=== PATIENT | female | born 1975 | race Caucasian/White ===

== ENCOUNTER 2016-02-20 12:30 | Inpatient (IN) | payer MEDICAID ==
[~2016-02-20] VITALS: Ht 165.1 cm; Wt 77.7 kg
[~2016-02-20 12:30] MED LIST: BEN25 PO; PNV1CAPS17
[2016-02-22] MEDS ORDERED: EPHEDrine SULFATE 50 MG/5 ML SYG ONE (07:00)
[2016-02-22 08:26] VITALS: BMI 62.4
[2016-02-22] MEDS ORDERED: CLINDAMYCIN 900 MG/D5W (PMX) 50 ML IV SCH (08:30)
[2016-02-22] MEDS ORDERED: OXYTOCIN 30 UNITS/LR 500 ML IV SCH (08:30)
[2016-02-22] MEDS ORDERED: MISOPROSTOL 200 MCG TAB PR PRN ×2 (08:30→14:30)
[2016-02-22] MEDS ORDERED: METHYLERGONOVINE 0.2 MG INJ IM PRN ×2 (08:30→14:30)
[2016-02-22] MEDS ORDERED: OXYTOCIN 30 UNITS/LR 500 ML IV PRN ×2 (08:30→14:30)
[2016-02-22] MEDS ORDERED: CARBOPROST 250 MCG INJ IM PRN ×2 (08:30→14:30)
[2016-02-22 08:31] VITALS: Ht 165.1 cm; Wt 77.7 kg
[2016-02-22 08:36] LABS: BASOPHILS % 0.4 % (0.0-2.0); EOSINOPHILS # 0.1 10^3/ul (0.0-0.5); EOSINOPHILS % 0.9 % (0.0-7.0); HEMATOCRIT 40.7 % (37.0-47.0); HEMOGLOBIN 13.8 g/dl (12.0-16.0); LYMPHOCYTES # 1.5 10^3/ul (0.8-2.9); LYMPHOCYTES % 15.1 % (15.0-51.0); MEAN CORPUSCULAR HEMOGLOBIN 30.6 pg (29.0-33.0); MEAN CORPUSCULAR HGB CONC 33.9 g/dl (32.0-37.0); MEAN CORPUSCULAR VOLUME 90.4 fl (82.0-101.0); MEAN PLATELET VOLUME 12.9 fl (7.4-10.4); MONOCYTE # 0.7 10^3/ul (0.3-0.9); MONOCYTES % 7.3 % (0.0-11.0); NEUTROPHIL # 7.6 10^3/ul (1.6-7.5); NEUTROPHILS % 76.3 % (39.0-77.0); PLATELET COUNT 115 10^3/UL (140-440); RED CELL DISTRIBUTION WIDTH 14.4 % (11.5-14.5)
[2016-02-22 08:40] LABS: INR 0.98; PARTIAL THROMBOPLASTIN TIME 27.6 Sec (25.0-35.0)
[2016-02-22] MEDS: LACTATED RINGER'S 1,000 ML IV SCH ×2 (08:46→09:19)
[2016-02-22 09:03] LABS: CONDITION 1; LH ANALYZER COMMENTS 1; SUSPECT 1
[2016-02-22 09:16] VITALS: BP 111/71; PULSE 81; RESP 18
[2016-02-22] MEDS ORDERED: FENTAnyl 50 MCG/ML VIAL ONE (10:01)
[2016-02-22] MEDS ORDERED: morphine SULFATE/PF (10 MG/10 ML) INJ ONE (10:01)
[2016-02-22] MEDS ORDERED: PHENYLephrine (100 MCG/ML) 5ML SYG ONE (10:01)
[2016-02-22] MEDS ORDERED: ONDANSETRON 4 MG INJ ONE (10:25)
--- NOTE | 2016-02-22 10:58 | HP ---
Date/Time of Note Date/Time of Note DATE: 02/22/16 TIME: 10:52 OB - History Hx of Present Free Text/Dictation 40 years old Thai female 3 para 2 history of 2 previous with EDC of February 27, 2016 admitted at 39 weeks 2 days for repeat and bilateral tubal ligation she has been informed regarding the tubal ligation failure rate, and risk of increased chance of ectopic and future failure to conceive and patient would like to proceed with tubal ligation at the time of section Estimated Due Date: Feb 27, 2016 : 3 Para: 2 Care: Limited Care Obstetrical Complications: Gestational Diabetes Medical Complications: None Past Family/Social History * Past Medical, Surgical, Family and Obstetric Histories reviewed from chart. Rubella: immune RPR/VDRL: Negative GBS Status: Negative HBsAG: Negative OB Admission Exam Vital Signs Vital Signs Vital Signs Date Time Temp Pulse Resp B/P Pulse Ox O2 Delivery O2 Flow Rate FiO2 02/22/16 09:16 98.0 81 18 111/71 Room Air Physical Exam HEENT: WNL Heart: Rhythm Normal Lungs: Clear, Equal Abdomen: WNL Extremities: Normal Cervical Dilatation: None Station: -2 Membranes: Intact Heart Rate: 130's Accelerations: Accelerations Present Decelerations: No Decelerations Last 72 hours Lab Results CBC & BMP 02/22/16 08:00 FAUSTINO ROSE MD Feb 22, 2016 10:58
[2016-02-22] MEDS ORDERED: KETOROLAC 30 MG INJ IV PRN (11:30)
[2016-02-22] MEDS ORDERED: DIPHENHYDRAMINE 50 MG INJ IV PRN (11:30)
[2016-02-22] MEDS ORDERED: HYDROmorphONE 1 MG/ML SYG IV PRN ×2 (11:30)
[2016-02-22] MEDS ORDERED: ONDANSETRON 4 MG INJ IV PRN (11:30)
[2016-02-22] MEDS ORDERED: ZOLPIDEM 5 MG TAB PO PRN (11:30)
[2016-02-22] MEDS ORDERED: NALOXONE (0.4 MG/ML) INJ IV PRN (11:30)
--- NOTE | 2016-02-22 13:40 | OPR ---
DATE OF OPERATION: 02/22/2016 PREOPERATIVE DIAGNOSES: 1. Intrauterine at 39 weeks 2 days' gestation. 2. History of 2 previous sections. 3. Request for voluntary sterilization, bilateral tubal ligation. POSTOPERATIVE DIAGNOSES: 1. Intrauterine at 39 weeks 2 days' gestation. 2. History of 2 previous sections. 3. Request for voluntary sterilization, bilateral tubal ligation. OPERATION PERFORMED: Repeat transverse low cervical section, bilateral tubal ligation. SURGEON: Faustino Donato MD PROPERTY ASSISTANT: Nelson Alexander MD ANESTHESIA: Spinal. ANESTHESIOLOGIST: Michael Abad DO FINDINGS: Live baby girl with the 9 and 9. DETAILS OF THE PROCEDURE: Under satisfactory spinal anesthesia, the patient was prepped and draped and placed in supine position, tilted to the left. Pfannenstiel incision was made, incision carried through the subcutaneous tissue. Bleeders brought under control with electrocautery. Fascia incis ed to the length of the incision. Rectus muscle divided in midline. Peritoneum exposed, entered th rough a transverse incision. Exploration of abdomen revealed gravid uterus, normal appearing tubes and ovaries, extremely thinned out lower segment of the uterus to the thickness of 1 mm. Bladder fl ap was developed. Transverse incision was made in the lower segment of the uterus. Amniotic sac ru ptured. Clear amniotic fluid noted. Live baby girl was delivered from unengaged vertex from LOP po sition. Nasal oropharyngeal suction was performed. Baby handed to the team for immediate attention. The patient received 20 units of Pitocin. Placenta delivered manually intact. Uterine cavity cleaned with wet sponge and drainage established. Uterus closed in 2 layers using Monocryl # 1 in continuous fashion. Tubal ligation performed by identifying the fimbria and ampullar section o f the right fallopian tube. Suture material used #0 plain catgut was reinforced with the same sutur e material. Fimbriectomy was performed and the specimen submitted for the pathology. The same proc edure performed for the opposite side. Peritoneal cavity was irrigated with copious amount of steri le water. Sponge, needle and instrument reported to be correct. Abdominal peritoneum closed with 2 -0 chromic catgut continuously. Rectus muscle approximated with few interrupted 2-0 chromic catgut. Fascia closed with #1 PDS in a continuous fashion. Subcutaneous tissue approximated with 2-0 renal medicine physician geovanna catgut. Skin closed with ermias. Estimated blood loss 600 mL. Urine bag contained 200 mL of clear urine. Patient tolerated procedure well, transferred to recovery room in a good condition. Dictated By: FAUSTINO DONATO MD HF/NTS Conf#: [id number] DID#: [id number] CC: NELSON ALEXANDER MD;*EndCC*
[2016-02-22 14:30] VITALS: BP 109/68; PULSE 72; RESP 18
[2016-02-22] MEDS ORDERED: LANOLIN 7 GM TUBE TOP PRN (14:30)
[2016-02-22] MEDS ORDERED: CEFAZOLIN 1 GM/50 ML (PMX) 50 ML IVPB SCH (14:30)
[2016-02-22] MEDS ORDERED: ACETAMINOPHEN/CODEINE #3 TAB PO PRN ×2 (14:30)
[2016-02-22 15:00] VITALS: BP 112/57; PULSE 74; RESP 19
[2016-02-22] MEDS: OXYTOCIN 30 UNITS/LR 500 ML IV SCH ×3 (15:11→22:04)
--- NOTE | 2016-02-22 17:03 | OPPN ---
Date/Time of Note Date/Time of Note DATE: 02/22/16 TIME: 16:59 Operative/Procedure Note Term history of previous request for bilateral tubal ligation Pre-Operative Diagnosis Same as above Post-Operative Diagnosis Same as above Procedure Repeat bilateral tubal ligation Surgeon: FAUSTINO ROSE MD Drug Safety Scientist: NELSON CARLOS MD Anesthesiologist: JOANA MORELOS DO Findings Live baby girl 9 and 9 Estimated blood loss: other (600 mL) Drains: Not applicable Specimens: Not Applicable Complications: None Anesthesia type: spinal FAUSTINO ROSE MD Feb 22, 2016 17:03
[2016-02-22 20:00] VITALS: BP 120/64; PULSE 78; RESP 20
[2016-02-23] MEDS: OXYTOCIN 30 UNITS/LR 500 ML IV SCH ×3 (00:26→20:59)
[2016-02-23 03:31] VITALS: BP 120/61; PULSE 74; RESP 20
[2016-02-23 05:15] VITALS: BP 132/77; PULSE 86; RESP 22
[2016-02-23 08:06] LABS: BASOPHILS % 0.1 % (0.0-2.0); EOSINOPHILS # 0.1 10^3/ul (0.0-0.5); EOSINOPHILS % 0.6 % (0.0-7.0); HEMATOCRIT 35.9 % (37.0-47.0); HEMOGLOBIN 12.1 g/dl (12.0-16.0); LYMPHOCYTES # 0.7 10^3/ul (0.8-2.9); LYMPHOCYTES % 6.7 % (15.0-51.0); MEAN CORPUSCULAR HEMOGLOBIN 30.5 pg (29.0-33.0); MEAN CORPUSCULAR HGB CONC 33.8 g/dl (32.0-37.0); MEAN CORPUSCULAR VOLUME 90.4 fl (82.0-101.0); MEAN PLATELET VOLUME 12.8 fl (7.4-10.4); MONOCYTE # 0.5 10^3/ul (0.3-0.9); MONOCYTES % 4.7 % (0.0-11.0); NEUTROPHIL # 9.4 10^3/ul (1.6-7.5); NEUTROPHILS % 87.9 % (39.0-77.0); RED BLOOD COUNT 3.97 10^6/ul (4.20-5.40); RED CELL DISTRIBUTION WIDTH 14.4 % (11.5-14.5); UNCORRECTED WBC 10.7 10^3/ul (4.8-10.8); WHITE BLOOD COUNT 10.7 10^3/ul (4.8-10.8)
[2016-02-23 08:30] VITALS: BP 93/63; PULSE 73; RESP 18
[2016-02-23 08:39] LABS: CONDITION 1; LH ANALYZER COMMENTS 1; SUSPECT 1
[2016-02-23 09:16] LABS: PLATELET COUNT 130 10^3/UL (140-440)
[2016-02-23] MEDS: SENNA/DOCUSATE NA (8.6MG/50MG) TAB PO SCH ×2 (10:11→20:58)
[2016-02-23 12:00] VITALS: BP 95/56; PULSE 88; RESP 20
[2016-02-23] MEDS: IBUPROFEN 600 MG TAB PO SCH ×3 (12:00→23:31)
[2016-02-23] MEDS: OXYCODONE/ACETAMINOPHEN (5/325) TAB PO PRN ×4 (12:03→16:07)
--- NOTE | 2016-02-23 12:05 | PN ---
Date/Time of Note Date/Time of Note DATE: 02/23/16 TIME: 12:04 OB Subjective Subjective Subjective Post day 1 Vital sign a stable afebrile abdomen soft bowel sounds present uterus firm extremity normal ambulation recommended diet advanced Laboratory Tests Test 02/23/16 07:10 Basophils # 0.010^3/ul Basophils % 0.1% Blood Morphology Comment Eosinophils # 0.110^3/ul Eosinophils % 0.6% Hematocrit 35.9% Hemoglobin 12.1g/dl Lymphocytes # 0.710^3/ul Lymphocytes % 6.7% Mean Corpuscular Hemoglobin 30.5pg Mean Corpuscular Hemoglobin Concent 33.8g/dl Mean Corpuscular Volume 90.4fl Mean Platelet Volume 12.8fl Monocytes # 0.510^3/ul Monocytes % 4.7% Neutrophils # 9.410^3/ul Neutrophils % 87.9% Nucleated Red Blood Cells # 0.010^3/ul Nucleated Red Blood Cells % 0.0/100WBC Platelet Count 45451^3/UL Red Blood Count 3.9710^6/ul Red Cell Distribution Width 14.4% White Blood Count 10.710^3/ul Current Medications Medications (Trade) Dose Ordered Sig/Evette Route PRN Reason Start Time Stop Time Status Last Admin Dose Admin Lactated Ringer's 1,000 ml @ 125 mls/hr Q8H IV 02/22/16 08:03 02/22/16 14:09 DC 02/22/16 09:19 Oxytocin/Lactated Ringer's 500 ml @ 125 mls/hr ONCE IV 02/22/16 08:30 02/22/16 14:09 DC 02/22/16 11:32 Oxytocin/Lactated Ringer's 500 ml @ 0 mls/hr ONCE PRN IV For Hemorrhage Management 02/22/16 08:30 02/22/16 14:10 DC Methylergonovine Maleate (Methergine) 0.2 mg ONCE PRN IM VAGINAL BLEEDING 02/22/16 08:30 02/22/16 14:10 DC Carboprost Tromethamine (Hemabate) 250 mcg ONCE PRN IM VAGINAL BLEEDING 02/22/16 08:30 02/22/16 14:10 DC Misoprostol 1000 mcg 1,000 mcg ONCE PRN GA VAGINAL BLEEDING 02/22/16 08:30 02/22/16 14:10 DC Clindamycin HCl/ Dextrose (Cleocin 900 Mg/ D5W (Pmx)) 50 ml @ 50 mls/hr ONCE IV 02/22/16 08:30 02/22/16 14:09 DC Morphine Sulfate (Duramorph) 10 mg STK-MED ONCE .ROUTE 02/22/16 10:01 02/22/16 10:02 DC Fentanyl (Sublimaze) 100 mcg STK-MED ONCE .ROUTE 02/22/16 10:01 02/22/16 10:02 DC Phenylephrine HCl (Cristobal-Synephrine Inj Syg) 500 mcg STK-MED ONCE .ROUTE 02/22/16 10:01 02/22/16 10:02 DC Ondansetron HCl (Zofran Inj) 4 mg STK-MED ONCE .ROUTE 02/22/16 10:25 02/22/16 10:26 DC Naloxone HCl (Narcan) 0.1 mg Q2M PRN IV FOR RESP RATE 8 OR LESS 02/22/16 11:30 02/23/16 11:29 DC Ketorolac Tromethamine (Toradol) 30 mg Q6H PRN IV PAIN 02/22/16 11:30 02/23/16 11:29 DC 02/23/16 04:17 Hydromorphone HCl (Dilaudid) 0.2 mg Q3H PRN IV PAIN LEVEL 1-5 02/22/16 11:30 02/23/16 11:29 DC Hydromorphone HCl (Dilaudid) 0.4 mg Q3H PRN IV PAIN LEVEL 6-10 02/22/16 11:30 02/23/16 11:29 DC Diphenhydramine HCl (Benadryl) 25 mg Q6H PRN IV ITCHING 02/22/16 11:30 02/23/16 11:29 DC 02/23/16 04:08 Ondansetron HCl (Zofran Inj) 4 mg Q6H PRN IV NAUSEA AND/OR VOMITING 02/22/16 11:30 02/23/16 11:29 DC Zolpidem Tartrate (Ambien) 5 mg HS MAY REPEAT X 1 PRN PO INSOMNIA 02/22/16 11:30 02/23/16 11:29 DC Acetaminophen/ Codeine Phosphate (Tylenol No.3) 1 tab Q4H PRN PO PAIN LEVEL 4-6 02/22/16 14:30 Acetaminophen/ Codeine Phosphate (Tylenol No.3) 2 tab Q4H PRN PO PAIN LEVEL 7-10 02/22/16 14:30 Oxycodone/ Acetaminophen (Percocet (5/ 325)) 1 tab Q4H PRN PO PAIN LEVEL 4-6 02/22/16 14:30 Oxycodone/ Acetaminophen (Percocet (5/ 325)) 2 tab Q4H PRN PO PAIN LEVEL 7-10 02/22/16 14:30 Ibuprofen (Motrin) 600 mg Q6 PO 02/23/16 12:00 Simethicone (Mylicon) 160 mg Q8H PRN PO DISTENSION/GAS/BLOATING 02/22/16 14:30 Senna/Docusate Sodium (Senokot-S) 1 tab BID PO 02/23/16 09:00 02/23/16 10:11 Lanolin (Chz-I-Hqvnoh) 1 applic BEDSIDE MEDICATION PRN TOP BEDSIDE FOR GUILLERMINA TO NIPPLES 02/22/16 14:30 02/22/16 15:09 Diphtheria/ Tetanus/Acell Pertussis 0.5 ml 0.5 ml ONCE ONCE IM* 02/25/16 09:00 02/25/16 09:01 Oxytocin/Lactated Ringer's 500 ml @ 0 mls/hr ONCE PRN IV For Hemorrhage Management 02/22/16 14:30 Methylergonovine Maleate (Methergine) 0.2 mg ONCE PRN IM VAGINAL BLEEDING 02/22/16 14:30 Carboprost Tromethamine (Hemabate) 250 mcg ONCE PRN IM VAGINAL BLEEDING 02/22/16 14:30 Misoprostol 1000 mcg 1,000 mcg ONCE PRN GA VAGINAL BLEEDING 02/22/16 14:30 Cefazolin Sodium 50 ml @ 100 mls/hr ONCE IVPB 02/22/16 14:30 02/22/16 14:30 DC Oxytocin/Lactated Ringer's 500 ml @ 125 mls/hr Q4H IV 02/22/16 14:04 02/23/16 00:26 FAUSTINO ROSE MD Feb 23, 2016 12:05
[2016-02-23 16:00] VITALS: BP 111/72; PULSE 80; RESP 16
[2016-02-23 20:00] VITALS: BP 106/60; PULSE 73; RESP 16
[2016-02-24] MEDS: OXYTOCIN 30 UNITS/LR 500 ML IV SCH ×5 (02:04→10:04)
[2016-02-24 03:45] VITALS: BP 108/63; PULSE 65; RESP 16
[2016-02-24] MEDS: IBUPROFEN 600 MG TAB PO SCH ×4 (05:40→23:53)
[2016-02-24 08:15] VITALS: BP 111/73; PULSE 81; RESP 18
[2016-02-24] MEDS: SENNA/DOCUSATE NA (8.6MG/50MG) TAB PO SCH ×2 (08:52→21:07)
[2016-02-24] MEDS: OXYCODONE/ACETAMINOPHEN (5/325) TAB PO PRN (08:53)
--- NOTE | 2016-02-24 13:13 | PN ---
Date/Time of Note Date/Time of Note DATE: 02/24/16 TIME: 13:11 OB Subjective Subjective Subjective Post day 2 Vital sign a stable afebrile abdomen soft incision dry good bowel sounds had normal BM ambulating no complain of pain plan of a.m. discharge discussed with the patient FAUSTINO ROSE MD Feb 24, 2016 13:12
[2016-02-24 16:47] VITALS: BP 96/71; PULSE 73; RESP 18
[2016-02-24 19:40] VITALS: BP 100/62; PULSE 67; RESP 18
[2016-02-25 04:10] VITALS: BP 98/55; PULSE 63; RESP 18
[2016-02-25] MEDS: IBUPROFEN 600 MG TAB PO SCH ×2 (05:42→12:28)
[2016-02-25 08:00] VITALS: BP 122/71; PULSE 71; RESP 18
[2016-02-25] MEDS ORDERED: DIPHTH/TET/ACEL PERTUSS (ADULT) 0.5 ML VIAL IM* ONE (09:00)
[2016-02-25] MEDS: SENNA/DOCUSATE NA (8.6MG/50MG) TAB PO SCH (09:00)
--- NOTE | 2016-02-25 14:42 | PD.PPDC ---
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
--- NOTE | 2016-02-25 14:47 | DS ---
Date/Time of Note Date/Time of Note DATE: 02/25/16 TIME: 14:44 Obstetrical Discharge Record Final Diagnosis Final Diagnosis: Term delivered Section Section: Repeat Condition on Discharge Physical Assessment Last Vitals: Post day 3 Vital sign stable incision dry ermias in place abdomen soft uterus firm lochia normal extremity normal patient discharged home with follow-up instructions recommended to make appointment in 4 days at the clinic to discontinue her ermias. Voiding: Yes Bowel Movement: Yes Breast: Filling Fundus: Firm Abdomen and Incision: Healing well dry, clean Calf Tenderness: No Patient Condition: Good FAUSTINO ROSE MD Feb 25, 2016 14:47
== END 2016-02-25 16:05 | disposition home or self-care (01) | DRG 766 ==
LOC: L-D 02-22 07:57 → PP1 02-22 14:08
PROVIDERS: ADMIT Obstetrics & Gynecology; ATTEND Obstetrics & Gynecology
PROC: 0UB70ZZ Excision of Bilateral Fallopian Tubes, Open Approach (ICD-10-PCS; 2016-02-22)
PROC: 10D00Z1 Extraction of Products of Conception, Low, Open Approach (ICD-10-PCS; principal; 2016-02-22 12:30)
DX: O34.211 Maternal care for low transverse scar from previous cesarean delivery (principal); O24.429 Gestational diabetes mellitus in childbirth, unspecified control; Z3A.39 39 weeks gestation of pregnancy; Z37.0 Single live birth; O09.523 Supervision of elderly multigravida, third trimester; Z30.2 Encounter for sterilization
CPT/HCPCS: 82947; 85025; 85610; 85730; 86592; 86850; 86900; 86901; 87340; 88302; 90715; 99464; J1200; J1885; J2274; J2370; J2405; J2590; J3010; J7120